=== PATIENT | female | born 1970 | race Caucasian/White ===

== ENCOUNTER 2023-12-30 00:14 | Day surgery (SDC) | payer OTHER, SELFPAY ==
[2023-12-24 08:44] VITALS: BMI 37.8
--- NOTE | 2023-12-24 09:43 | PC.NURSE ---
Report to the Outpatient Waiting Room, entrance under the green pavilion located off [facility], at time _0930am_ on date __12/30/23____. Planned Procedure Time: _1130am . Time changes happen often and if your time is changed the preop area will call you the afternoon before. - You and your visitor will be asked to self-screen and do not enter if you have any COVID symptoms. - A mask is optional within the hospital at this time. Patients may have clear liquids (water, carbonated beverages, clear teas, apple juice) until 3 hours prior to surgery with a maximum of 20 ounces. - No food from midnight until time of surgery Take the following medications with a SIP of water the morning of surgery: _ESTRADIOL; LORATADINE; FAMOTIDINE; BUSPIRONE DO NOT STOP ANY OF YOUR OTHER PRESCRIPTION MEDICATIONS PRIOR TO SURGERY ?EXCEPT THE FOLLOWING Medications to discontinue per physician HOLD OZEMPIC THIS WEEK (WEEK OF 12/23/23) Date to take last dose Please no make-up, nail cymro, hairspray, perfume, deodorant, or body powder the day of surgery. No jewelry (including any body piercings) or valuables the day of surgery, leave them at home. Please take a shower or bath the night before, or the morning of, surgery with an antibacterial soap. Wear comfortable, loose fitting clothing. - Jewelry must be removed prior to entering the operating room. Rings and piercings that are not removed may be cut off. - The hospital will not accept responsibility for valuables. - Please leave all valuables, including medications, at home the day of surgery. If you are going home after surgery, a licensed dolly driver must drive you home. - NO public transportation without another adult if you receive anesthesia. - We recommend that an adult stay with you for 24 hours following discharge. - We also recommend that you do not drive, make important decision, drink alcoholic beverages, or take any drugs that were not prescribed by your health care provider for at least 24 hours after your discharge time. Follow any additional instructions given to you from your surgeon. If you or anyone in your household have experienced Covid symptoms in the past week, please notify your surgeon or the nurse liaison at the phone number below for possible testing. Telephone instructions given to _CHELSEA and asked if any additional questions and then verbalized understanding. Patient advised to call surgeon office or pre surgery nurse liaison [phone] if any additional questions.
--- NOTE | 2023-12-29 21:08 | PM.IMHP ---
H&P: HPI History of Present Illness Date/Time: 12/29/23 21:08 Chief Complaint: KATIE Narrative: mixed incontinence. On meds for OAB. Desires surgery for KATIE Review of Systems Review of Systems: All systems reviewed & are unremarkable except as noted in HPI and below [facility] Social History Social History Smoking status: Never smoker Alcohol intake: current Substance use: never Substance use type: does not use Living arrangements: with family Spiritual care concerns: No Meds Home Medications and Allergies Home Medications Medication Instructions Recorded Confirmed Type atorvastatin 40 mg tablet 40 mg PO HS 12/24/23 12/24/23 History buspirone 10 mg tablet 10 mg PO TID PRN Anxiety 12/24/23 12/24/23 History diazepam 2 mg tablet 2 mg PO TID PRN Anxiety 12/24/23 12/24/23 History estradiol 1 mg tablet 1 mg PO DAILY 12/24/23 12/24/23 History famotidine 40 mg tablet 40 mg PO DAILY 12/24/23 12/24/23 History gabapentin 100 mg capsule 100 mg PO DAILY 12/24/23 12/24/23 History gabapentin 100 mg capsule 200 mg PO HS 12/24/23 12/24/23 History loratadine 10 mg tablet 10 mg PO DAILY 12/24/23 12/24/23 History oxybutynin chloride 10 mg 10 mg PO DAILY 12/24/23 12/24/23 History tablet,extended release 24 hr spironolactone 100 mg tablet 100 mg PO DAILY 12/24/23 12/24/23 History trazodone 50 mg tablet 50 mg PO HS 12/24/23 12/24/23 History zolpidem 5 mg tablet 5 mg PO HS 12/24/23 12/24/23 History semaglutide (weight loss) 0.25 0.25 mg subcut WEEKLY 12/25/23 12/25/23 History mg/0.5 mL subcutaneous pen injector Allergies Allergy/AdvReac Type Severity Reaction Status Date / Time acetaminophen [From Percocet] Allergy Mild Hives Verified 12/24/23 09:59 adhesive tape Allergy Mild Rash Verified 12/24/23 09:59 codeine Allergy Mild Hives Verified 12/24/23 09:58 oxycodone [From Percocet] Allergy Mild Hives Verified 12/24/23 09:59 Exam Narrative: NAD normal breathing + urethral mobility Assessment and Plan Assessment and plan (1) KATIE (stress urinary incontinence, female): Code(s): N39.3 - Stress incontinence (female) (male) Status: Acute Assessment and Plan: plan for urethral sling. risks , benefits and alternative ourlined in office chart
--- NOTE | 2023-12-30 07:16 | WPDHPUPDATE1 ---
History and Physical Update Update Date/Time: 12/30/23 07:16 History and Physical has been reviewed, including an updated exam of the patient. There are NO changes in the patient's condition. Risks, benefits, and alternatives have been discussed and questions answered. Patient agrees to proceed with procedure.
[2023-12-30 09:08] VITALS: BP 133/73; PULSE 76; RESP 16; TEMP 37; O2SAT 100
--- NOTE | 2023-12-30 09:33 | P.PNAN_ITS ---
Anes - Initial Pre Proc Eval Procedure: Operation Date: 12/30/23 11:30 Proposed Procedures p Urethral Sling - Jc Phillips MD Date/Time: 12/30/23 09:33 Surgeon: Jc Phillips MD Pre Op Diagnosis: Stress Incont Patient Data Age: 53 Gender: F Height: 1.63 m Weight: 100 kg Allergies Allergy/AdvReac Type Severity Reaction Status Date / Time acetaminophen [From Percocet] Allergy Mild Hives Verified 12/24/23 09:59 adhesive tape Allergy Mild Rash Verified 12/24/23 09:59 codeine Allergy Mild Hives Verified 12/24/23 09:58 oxycodone [From Percocet] Allergy Mild Hives Verified 12/24/23 09:59 Home Medications Medication Instructions Recorded Confirmed Type atorvastatin 40 mg tablet 40 mg PO HS 12/24/23 12/24/23 History buspirone 10 mg tablet 10 mg PO TID PRN Anxiety 12/24/23 12/24/23 History diazepam 2 mg tablet 2 mg PO TID PRN Anxiety 12/24/23 12/24/23 History estradiol 1 mg tablet 1 mg PO DAILY 12/24/23 12/24/23 History famotidine 40 mg tablet 40 mg PO DAILY 12/24/23 12/24/23 History gabapentin 100 mg capsule 100 mg PO DAILY 12/24/23 12/24/23 History gabapentin 100 mg capsule 200 mg PO HS 12/24/23 12/24/23 History loratadine 10 mg tablet 10 mg PO DAILY 12/24/23 12/24/23 History oxybutynin chloride 10 mg 10 mg PO DAILY 12/24/23 12/24/23 History tablet,extended release 24 hr spironolactone 100 mg tablet 100 mg PO DAILY 12/24/23 12/24/23 History trazodone 50 mg tablet 50 mg PO HS 12/24/23 12/24/23 History zolpidem 5 mg tablet 5 mg PO HS 12/24/23 12/24/23 History semaglutide (weight loss) 0.25 0.25 mg subcut WEEKLY 12/25/23 12/25/23 History mg/0.5 mL subcutaneous pen injector Patient hx anesthesia problems: none Family hx anesthesia problems: none Results Review: All pre-operative results and documents have been reviewed as part of the pre- operative evaluation. PMFSH Social History Social History Smoking status: Never smoker Alcohol intake: current Substance use: never Substance use type: does not use Living arrangements: with family Spiritual care concerns: No Anes - Eval Final PreProcedure Day of Procedure 12/30/23 09:33 Patient weight: obese Heart: regular rate and rhythm Lungs: clear to auscultation Airway: Mallampati scale class III Neurological: alert and oriented Last oral intake: >/= 8 hours ASA classification: III Emergent: no Anesthetic plan: proceed Anesthesia type and monitoring: general LMA Results Review: All pre-operative results and documents have been reviewed as part of the pre- operative evaluation. Informed Consent: The patient's anesthetic plan and its attendant risks and benefits were discussed with the patient/family/POA. Questions were solicited and answers provided to the satisfaction of the patient/family/POA.
[2023-12-30 09:54] VITALS: BMI 37.9
[2023-12-30] MEDS: ceFAZolin 2 GM/D5W 50 ML 2 GM/50 ML BAG IVPB (10:32)
[2023-12-30] MEDS: BUPIVACAINE/EPINEPHRINE 0.5% 10 ML VIAL 20 ML INFILTRATE (10:52)
[2023-12-30 11:10] VITALS: BP 122/73; PULSE 79; RESP 7; TEMP 36.3; O2SAT 100
[2023-12-30] MEDS: LACTATED RINGERS 1,000 ML 30 ML IV CONT (11:10)
--- NOTE | 2023-12-30 11:16 | W.PM.PROC2 ---
Procedure Note - Detailed Date of Procedure 12/30/23 Pre-op Diagnosis Stress Incont Post-op Diagnosis Same Procedure Performed mid urethral sling cystoscopy Surgeon Jc Phillips MD Anesthesia General Indications This is a female with confirm stress urinary incontinence. She desires surgical correction. She understands the risks of bleeding, infection, injury to the urinary tract, vaginal mesh extrusion, urinary tract mesh erosion, obstructive voiding requiring a secondary procedure, hip and leg pain, dyspareunia, inability to improve overactive bladder symptoms. She agrees to proceed. Description of Procedure She was correctly identified. Informed consent obtained. She was brought the operating room. She was given appropriate anesthesia. She was given appropriate perioperative antibiotics. A time-out performed. I marked out the site of the inner thigh incisions. I anesthetized the skin and made those incisions. I anesthetized the anterior vaginal wall over the mid urethra. I made a 1 cm incision. I dissected out laterally taking great care not to injure the refilled vaginal wall. I passed the helical trocars. First on the left. Then on the right. I did this from the thigh incision towards the vaginal incision. The sling was connected to the trocars and brought out through the thigh incision. I tensioned the sling appropriately. I cut and the plastic sheaths. I then closed the incision with 2 0 Vicryl. On cystoscopy there is no tumors or surgical artifact. There was no surgical artifact in the urethra. I cut the excess sling material. Close incisions with glue. She was awakened and transferred to the PACU in stable condition. Implants Urethral sling Estimated Blood Loss 30 Drains No Packing No Pathology None sent Complications No immediate complications Condition Stable Disposition PACU
[2023-12-30 11:25] VITALS: BP 117/70; PULSE 72; RESP 18; O2SAT 100
[2023-12-30 11:31] VITALS: BP 115/79; PULSE 67; RESP 16
[2023-12-30 12:00] VITALS: BP 124/61; PULSE 75; RESP 16
== END 2023-12-30 12:05 | disposition home or self-care (01) ==
PROVIDERS: Visit Provider Urology
PROC: (CPT 57288; principal; 2023-12-30 11:30)
DX: N39.3 Stress incontinence (female) (male) (principal); E66.9 Obesity, unspecified; Z68.37 Body mass index [BMI] 37.0-37.9, adult; Z79.85 Long-term (current) use of injectable non-insulin antidiabetic drugs
CPT/HCPCS: 57288; C1771; J0690; J1100; J2250; J2405; J2704; J3010; J7030; J7120